=== PATIENT | male | born 1995 ===

== ENCOUNTER 2021-04-05 01:46 | Emergency (ER) | payer SELFPAY ==
[~2021-04-05] VITALS: Ht 182.9 cm; Wt 82.7 kg
[2021-04-05 01:55] VITALS: BP 119/78
== END 2021-04-05 02:37 | disposition home or self-care (01) ==
LOC: ER 01:52
DX: Z04.1 Encounter for examination and observation following transport accident (principal); V87.7XXA Person injured in collision between other specified motor vehicles (traffic), initial encounter; Y93.89 Activity, other specified; Y92.89 Other specified places as the place of occurrence of the external cause; Y99.8 Other external cause status
CPT/HCPCS: 99283